=== PATIENT | female | born 1950 | race Caucasian/White ===

== ENCOUNTER → 2019-07-31 10:48 | Outpatient (BNVA) | payer BC, SELFPAY | PROVIDERS: Family Provider Family Medicine; PCP Family Medicine; Visit Provider Nurse Practitioner Family | DX: R05 Cough (principal) | CPT/HCPCS: 87071; 87400; 87635; 87880 ==

== ENCOUNTER 2020-11-08 08:04 | Outpatient (CLI) | payer OTHER, SELFPAY ==
--- NOTE | 2020-11-08 08:11 | MM_ITS ---
WS: [id number] Bilateral screening digital mammogram, 11/08/2020 Clinical Data: SCREENING Comparison: 08/10/2018, 06/14/2017, 09/20/2015, 12/01/2013, 07/18/2012, 01/26/2011, 05/13/2009, 02/25/2007, . Findings: The breast parenchymal pattern shows fat replacement. No spiculated masses or clustered calcification s are seen. There are no secondary signs of carcinoma. MM/[place] [id number] Impression: 1. Negative bilateral mammogram unchanged. 2. Recommend annual screening mammograms. BIRADS: 1-Negative FOLLOW UP: 1 Year Follow-up The CAD spot checker was used.
== END 2020-11-08 08:05 | disposition home or self-care (01) ==
LOC: RADSHAW 08:10
PROVIDERS: PCP Family Medicine; Visit Provider Family Medicine
DX: Z12.31 Encounter for screening mammogram for malignant neoplasm of breast (principal)
CPT/HCPCS: 77067

== ENCOUNTER 2021-01-24 14:51 | Outpatient (CLI) | payer OTHER, SELFPAY ==
--- NOTE | 2021-01-24 15:00 | XR_ITS ---
WS: [id number] SCREENING DEXA SCAN [employer] CLINICAL INFORMATION: POSTMENOPAUSAL STATUS COMPARISON: 2014 FINDINGS: The L1-L4 bone mineral density measures 1.009 g/cm2. This corresponds to a T score score of -1.4 and Z score of -0.2. Left femoral neck bone mineral density measures 0.824 g/cm2. This corresponds to a T score of -1.5 an d Z score of -0.4. Right femoral neck bone mineral density measures 0.837 g/cm2. This corresponds to a T score -1.4of an d Z score of -0.3. Mean femoral neck bone mineral density measures 0.831 g/cm2. This corresponds to a T score of -1.4 an d Z score of -0.3. XR/XR DEXA axial skeleton* [id number] IMPRESSION: Osteopenia Patient's FRAX calculated 10 year probability for major osteoporotic fracture i s 11.4 % and osteoporotic hip fracture is 2.0%.
== END 2021-01-24 14:52 | disposition home or self-care (01) ==
PROVIDERS: PCP Family Medicine; Visit Provider Family Medicine
DX: Z78.0 Asymptomatic menopausal state (principal); M85.80 Other specified disorders of bone density and structure, unspecified site
CPT/HCPCS: 77080

== ENCOUNTER 2022-03-27 08:09 | Outpatient (CLI) | payer OTHER, SELFPAY ==
--- NOTE | 2022-03-27 08:15 | MM_ITS ---
WS: [id number] BILATERAL SCREENING DIGITAL TOMOSYNTHESIS MAMMOGRAM WITH CAD HISTORY: SCREENING COMPARISON: 11/08/2020, 08/10/2018 Bilateral CC and MLO views with tomosynthesis and synthetic mammography submitted. Computer aided det ection analyzed. Breast composition: There are scattered areas of fibroglandular density. No suspicious masses, microc alcifications or architectural distortion. Benign calcifications in each breast. MM/[place] [id number] IMPRESSION: BI-RADS: 2-Benign FOLLOW UP: 1 Year Follow-up
== END 2022-03-27 08:10 | disposition home or self-care (01) ==
LOC: RAD 08:10
PROVIDERS: PCP Family Medicine; Visit Provider Family Medicine
DX: Z12.31 Encounter for screening mammogram for malignant neoplasm of breast (principal)
CPT/HCPCS: 77063; 77067

== ENCOUNTER → 2022-04-16 08:04 | Outpatient (BNVA) | payer OTHER, SELFPAY | PROVIDERS: PCP Family Medicine; Visit Provider Family Medicine | DX: Z00.00 Encounter for general adult medical examination without abnormal findings (principal); Z13.220 Encounter for screening for lipoid disorders; I10 Essential (primary) hypertension | CPT/HCPCS: 80053; 80061; 85025 ==

== ENCOUNTER 2023-04-09 08:05 | Outpatient (CLI) | payer OTHER, SELFPAY ==
--- NOTE | 2023-04-09 08:10 | MM_ITS ---
WS: [id number] Bilateral screening 3D tomosynthesis digital mammogram, 04/09/2023 Clinical Data: SCREENING Comparison: 03/27/2022, 11/08/2020, 08/10/2018, 06/14/2017, 09/20/2015, 12/01/2013, 07/18/2012, 01/26/2011, , 02/25/2007, 01/29/2006. Findings: The breast parenchymal pattern shows fat replacement. No spiculated masses or clustered calcification s are seen. There are no secondary signs of carcinoma. There are lymph nodes in both axilla. Impression: 1. Negative bilateral mammogram unchanged. 2. Recommend annual screening mammograms. MM/[place] [id number] BIRADS: 1-Negative FOLLOW UP: 1 Year Follow-up The CAD plan checker was used.
== END 2023-04-09 08:06 | disposition home or self-care (01) ==
LOC: RAD 08:05
PROVIDERS: PCP Family Medicine; Visit Provider Family Medicine
DX: Z12.31 Encounter for screening mammogram for malignant neoplasm of breast (principal)
CPT/HCPCS: 77063; 77067

== ENCOUNTER 2023-06-03 14:53 | Outpatient (CLI) | payer BC, SELFPAY ==
--- NOTE | 2023-06-03 15:01 | XR_ITS ---
WS: [id number] XR chest 2V* [id number] REASON FOR EXAM: Chest pain - left FINDINGS: The chest is unchanged compared to 11/02/2008. There is mild to moderate tortuosity of the thoracic aorta. Normal heart size. Calcified granulomatous disease in both hemithoraces. No acute or subacute pulmonary parenchymal or pleural abnormality. Mild changes of degenerative spondylosis in the mid and lower thoracic spine. IMPRESSION: No acute chest abnormality.
== END 2023-06-03 14:54 | disposition home or self-care (01) ==
PROVIDERS: PCP Family Medicine; Visit Provider Family Medicine
DX: R07.9 Chest pain, unspecified (principal); Z51.81 Encounter for therapeutic drug level monitoring; E03.9 Hypothyroidism, unspecified
CPT/HCPCS: 71046; 80053; 84443; 85025; 86141

== ENCOUNTER 2023-06-04 11:47 | Outpatient (CLI) | payer BC, SELFPAY ==
[2023-06-04] MEDS: iohexol 350 mg/mL 500 mL Btl (per mL) IV (12:01)
--- NOTE | 2023-06-04 13:00 | CT_ITS ---
WS: [id number] CT ABDOMEN AND PELVIS WITH CONTRAST HISTORY: Abd pain - LLQ, elevated CRP TECHNIQUE: Imaging performed of the abdomen and pelvis with IV contrast. Single phase imaging of the abdomen. Coronal and sagittal reformats are submitted. All CT scans at [facility] use at [address] one of these dose optimization techniques: automated exposure control; mA and/or kV adjustment per patient size (includes targeted exams where dose is matched to clinical indication); or iterative re construction. IV CONTRAST: Omnipaque 350; 100 mL IV. Oral contrast: No DLP: 495.23 mGy.cm COMPARISON: 12/15/2013 Lower thorax: Lung bases are clear. Heart is normal size. Small hiatal hernia. Liver/biliary system: Normal size with no intrahepatic dilatation. Gallbladder: Prior cholecystectomy. Pancreas: Normal size pancreas and pancreatic duct. No adjacent inflammation. Spleen: Normal size spleen. No mass or infarct. Adrenal glands: Normal. Right kidney: Normal. Left kidney: Normal. Aorta: Moderate atherosclerosis with no aneurysm. Lymphadenopathy: None. Free fluid: None. GI tract: Nondistended stomach. No small bowel obstruction. Normal appendix. Mild diffuse constipatio n. Numerous diverticula present throughout the colon. Greater distribution of diverticula in the mid to distal descending colon. There is very mild pericolonic inflammatory changes in the mid descending colon with adjacent diverticula. Increasing number of diverticula in the sigmoid colon with no obstr uction. No mass. Abdominal wall: Fat containing umbilical hernia. Pelvis: No free fluid or adenopathy within the pelvis. Bones: Degenerative disc disease throughout the lumbar spine. No fractures. Fusion RIGHT SI joint. IMPRESSION: 1. Very mild inflammatory changes around the descending colon associated with early changes of acute diverticulitis. There is no abscess or perforation. 2. Innumerable diverticula throughout the sigmoid colon. No evidence for acute sigmoid diverticuliti s. 3. No free fluid or abscess. 4. Prior cholecystectomy. 5. RIGHT SI joint osseous fusion.
== END 2023-06-04 11:48 | disposition home or self-care (01) ==
LOC: RAD 11:48
PROVIDERS: PCP Family Medicine; Visit Provider Family Medicine
DX: K57.32 Diverticulitis of large intestine without perforation or abscess without bleeding (principal); R79.82 Elevated C-reactive protein (CRP); Z90.49 Acquired absence of other specified parts of digestive tract
CPT/HCPCS: 74177; Q9967

== ENCOUNTER 2023-09-16 07:31 | Day surgery (SDC) | payer BC, SELFPAY ==
--- NOTE | 2023-09-16 06:00 | W.PM.OPSFHP ---
Same Day Surgery H&P Indication for Procedure/HPI DATE OF PROCEDURE: September 16, 2023 CHIEF COMPLAINT/INDICATIONFOR SURGICAL PROCEDURE: history of diverticular disease and need for screening colonoscopy PREOP DIAGNOSIS: need for screening colonoscopy PLANNED PROCEDURE: Operation Date: 09/16/23 08:50 Proposed Procedures p [id number] colon G0121 screen colon A risk Z12.11(Not Applicable) - Matt Magallon MD Medications/Allergies* Home Medications Medication Instructions Recorded Confirmed Type hydrochlorothiazide 25 mg tablet 25 mg PO DAILY 09/14/23 09/14/23 History lisinopril 40 mg tablet 40 mg PO DAILY 09/14/23 09/14/23 History Allergies/Adverse Reactions Allergy/AdvReac Type Severity Reaction Status Date / Time No Known Allergies Allergy Verified 09/14/23 09:26 Pertinent History/Comorbid Conditions* Medical History (Updated 07/30/23 @ 13:37 by Mark Gómez MD) Essential hypertension Surgical History (Updated 06/03/23 @ 19:15 by Mark Gómez MD) H/O left knee surgery Due to meniscus tear - 2016 History of cholecystectomy Hx of hysterectomy With BLO due to heavy bleeding Social History Smoking and tobacco/nicotine status: former use of tobacco/nicotine Quit status (tobacco/nicotine): has quit using Year quit tobacco: 1991 Alcohol intake: never Substance/Drug Use: never 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
[2023-09-16 07:51] VITALS: BP 116/67; PULSE 60; RESP 18; TEMP 36.4; O2SAT 97
[2023-09-16] MEDS: sodium chloride 0.9% 1,000 ML 30 ML IV (08:02)
--- NOTE | 2023-09-16 08:49 | P.ANESASSM_ITS ---
Pre-Anesthetic Assessment Height/Weight: Height 1.63 m Weight 79.379 kg Temp Pulse Resp BP Pulse Ox O2 Del Method 97.5 F L 60 18 116/67 97 Room Air 09/16/23 07:51 09/16/23 07:51 09/16/23 07:51 09/16/23 07:51 09/16/23 07:51 09/16/23 07:51 Preop Diagnosis: need for screening colonoscopy Operation Date: 09/16/23 08:50 [place] [id number] colon G0121 screen colon A risk Z12.11(Not Applicable) - Matt Magallon MD Familial anesthetic complications: none Last intake: Intake Last Liquid Date 09/15/23 Last Liquid Time 20:00 Last Solid Date 09/14/23 Last Solid Time 17:00 Social No alcohol and No tobacco Exam alert, oriented x 3, clear to auscultation bilaterally and regular rate & rhythm Airway Submandibular: within normal limits Cervical ROM: within normal limits Mallampati: Class II Dentition: partials Pulmonary None reported CV/HEM Hypertension None reported Hepatic None reported GI Gastroesophageal Reflux Disease Metabolic None reported Musc/skel Osteoarthritis/DJD Neuropsych None reported Anesthetic Plan ASA status: 2 Risk of > 500 ml blood loss (7ml/kg in children): No Medications/Allergies Home Medications Medication Instructions Recorded Confirmed Last Taken Type potassium chloride 10 mEq 10 meq PO DAILY #30 tabs 06/03/23 09/14/23 09/15/23 Rx tablet,extended release (Klor-Con) carvedilol 25 mg tablet 25 mg PO BID #60 tabs 07/01/23 09/16/23 09/16/23 05:30 Rx amlodipine 5 mg tablet 5 mg PO DAILY #90 tabs 07/30/23 09/14/23 09/15/23 Rx hydrochlorothiazide 25 mg tablet 25 mg PO DAILY 09/14/23 09/14/23 09/15/23 History lisinopril 40 mg tablet 40 mg PO DAILY 09/14/23 09/14/23 09/15/23 History Allergies Allergy/AdvReac Type Severity Reaction Status Date / Time No Known Allergies Allergy Verified 09/16/23 07:48 Current Medications Generic Name Dose Route Start Last Admin Trade Name Freq PRN Reason Stop Dose Admin Sodium Chloride 1,000 mls @ 30 mls/hr 09/16/23 07:45 05/23/24 08:02 Sodium Chloride 0.9% IV 30 mls/hr .Q24H WALLY Administration PFSH Anesthesia Medical History Essential hypertension Surgical History H/O left knee surgery Due to meniscus tear - 2017 History of cholecystectomy Hx of hysterectomy With BLO due to heavy bleeding Social History Smoking and tobacco/nicotine status: former use of tobacco/nicotine Quit status (tobacco/nicotine): has quit using Year quit tobacco: 1991 Alcohol intake: never Substance/Drug Use: never 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
[2023-09-16 09:55] VITALS: BP 100/45; PULSE 61; RESP 12; TEMP 36.1; O2SAT 98
[2023-09-16 10:10] VITALS: BP 122/60; PULSE 56; RESP 18; O2SAT 95
--- NOTE | 2023-09-16 10:15 | ANE.PACU2 ---
Inpatient post-anesthesia follow up: Airway intact: Yes Vital signs: Temperature 97.0 F Pulse Rate 56 Respiratory Rate 18 Blood Pressure 122/60 Pulse Oximetry 95 Oxygen Delivery Me thod Room Air Oxygen Flow Rate Fraction of Inspir ed Oxygen Hydration adequate: Yes Nausea and vomiting: No Pain level: 1 Mental status: Baseline
== END 2023-09-16 10:14 | disposition home or self-care (01) ==
PROVIDERS: PCP Family Medicine; Visit Provider Surgery
PROC: 0DJD8ZZ Inspection of Lower Intestinal Tract, Via Natural or Artificial Opening Endoscopic (ICD-10-PCS; CPT 45378; principal; 2023-09-16 08:50)
DX: Z12.11 Encounter for screening for malignant neoplasm of colon (principal); Z87.19 Personal history of other diseases of the digestive system; K57.30 Diverticulosis of large intestine without perforation or abscess without bleeding; K63.5 Polyp of colon; D12.8 Benign neoplasm of rectum; I10 Essential (primary) hypertension; Z87.891 Personal history of nicotine dependence
CPT/HCPCS: 45380; 88305; J2704; J7030

== ENCOUNTER 2023-11-15 09:53 | Outpatient (CLI) | payer BC, SELFPAY | END 2023-11-15 09:54 | disposition home or self-care (01) | LOC: SLEEP 09:53 | PROVIDERS: PCP Family Medicine; Visit Provider Family Medicine | DX: G47.10 Hypersomnia, unspecified (principal) | CPT/HCPCS: G0399 ==

== ENCOUNTER 2024-05-30 07:55 | Outpatient (CLI) | payer BC, SELFPAY ==
--- NOTE | 2024-05-30 | MM_ITS ---
WS: [id number] BILATERAL 3D TOMOSYNTHESIS DIGITAL SCREENING MAMMOGRAPHY WITH CAD CLINICAL INFORMATION: ANNUAL SCREENING HISTORY: Screening mammogram. No current complaints. COMPARISON: 2022 TECHNIQUE: Bilateral CC and MLO views. FINDINGS: Scattered fibroglandular densities bilaterally. No suspicious focal mass, asymmetry, calcifications, or architectural distortion. No evidence of malignancy. Incidental punctate and lucent centered calcifications. MM/MM scr tomosynthesis [id number] IMPRESSION: DENSITY: There are scattered areas of fibroglandular density. BI-RADS: 2 - Benign. FOLLOW UP: 1 Year Follow-up Recommend return to annual screening mammography.
== END 2024-05-30 07:56 | disposition home or self-care (01) ==
PROVIDERS: PCP Family Medicine; Visit Provider Family Medicine
DX: Z12.31 Encounter for screening mammogram for malignant neoplasm of breast (principal); R92.323 Mammographic fibroglandular density, bilateral breasts; R92.1 Mammographic calcification found on diagnostic imaging of breast
CPT/HCPCS: 77063; 77067

== ENCOUNTER → 2025-01-26 09:11 | Outpatient (BNVA) | payer BC, SELFPAY | PROVIDERS: PCP Family Medicine; Visit Provider Family Medicine | DX: Z51.81 Encounter for therapeutic drug level monitoring (principal); Z00.00 Encounter for general adult medical examination without abnormal findings; R73.09 Other abnormal glucose; E87.6 Hypokalemia; Z13.6 Encounter for screening for cardiovascular disorders | CPT/HCPCS: 80053; 80061; 83036; 83735; 85025 ==